=== PATIENT | male | born 1995 | race Hispanic/Latino ===

== ENCOUNTER → 2022-04-30 | Outpatient (CLI) | payer OTHER | LOC: M CARPUL 11:12 | PROVIDERS: ATTEND Physician Assistant | DX: R06.02 Shortness of breath (principal) ==

== ENCOUNTER → 2022-06-09 | Outpatient (CLI) | payer OTHER ==
[~2022-06-09] MED LIST: METHACHOLINE KIT (J7674) INH ONE
== END ==
LOC: M CARPUL 13:19
PROVIDERS: ATTEND Physician Assistant
DX: R06.02 Shortness of breath (principal)

== ENCOUNTER 2022-06-28 13:23 | Emergency (ER) | payer OTHER ==
[~2022-06-28] VITALS: Ht 172.7 cm; Wt 87.8 kg
[2022-06-28] MEDS ORDERED: ZOLO25TA PO (13:32)
[2022-06-28] MEDS ORDERED: HYDR50TA70 PO (13:32)
[2022-06-28 15:52] LABS: BASO % 0.4 % (0.0-1.0); EOS # 0.1 10^3/uL (0.0-0.5); EOS % 1.5 % (0.0-3.0); HEMATOCRIT 43.5 % (42.0-52.0); HEMOGLOBIN 14.8 g/dl (13.5-17.5); LYMPH # 1.8 10^3/uL (1.5-5.0); LYMPH % 33.7 % (24.0-44.0); MEAN CORPUSCULAR HEMOGLOBIN 30.8 pg (27.0-33.0); MEAN CORPUSCULAR VOLUME 90.6 fl (80.0-96.0); MONO # 0.4 10^3/uL (0.0-0.8); MONO % 7.3 % (2.0-8.0); NEUTROPHILS % 56.9 % (36.0-66.0); PLATELET COUNT, AUTOMATED 208 10^3/uL (150-450); WHITE BLOOD COUNT 5.3 10^3/uL (4.0-10.0)
[2022-06-28 16:30] LABS: ALBUMIN 3.9 GM/DL (3.2-5.2); ALT/SGPT 33 U/L (12-78); BILIRUBIN,TOTAL 0.3 MG/DL (0.2-1.0); BLOOD UREA NITROGEN 10 MG/DL (7-18); CALCIUM LEVEL 9.5 MG/DL (8.5-10.1); CARBON DIOXIDE LEVEL 28 MEQ/L (21-32); CHLORIDE LEVEL 112 MEQ/L (98-107); FREE T4 0.97 NG/DL (0.76-1.46); GLOMERULAR FILTRATION RATE > 60.0 (>60); GLUCOSE, FASTING 96 MG/DL (70-100); POTASSIUM SERUM 4.8 MEQ/L (3.5-5.1); SODIUM LEVEL 144 MEQ/L (136-145)
[2022-06-28 17:17] VITALS: BP 120/67
== END 2022-06-28 17:20 | disposition home or self-care (01) ==
LOC: M ED 13:23
DX: R42 Dizziness and giddiness (principal); G47.00 Insomnia, unspecified; F41.9 Anxiety disorder, unspecified; Z79.899 Other long term (current) drug therapy

== ENCOUNTER → 2022-07-09 | Outpatient (CLI) | payer OTHER ==
[~2022-07-09] MED LIST changes: +HYDR50TA70 PO; -METHACHOLINE KIT (J7674) INH ONE; +ZOLO25TA PO
== END ==
LOC: M PLAIMG 09:05
PROVIDERS: ATTEND Internal Medicine
DX: R06.00 Dyspnea, unspecified (principal)

== ENCOUNTER 2023-02-09 10:49 | Emergency (ER) | payer OTHER ==
[~2023-02-09] VITALS: Ht 175.3 cm; Wt 86.3 kg
[2023-02-09] MEDS ORDERED: ASPIRIN 81MG CHEW TABLET PO ONE (12:25)
[2023-02-09 13:32] LABS: BASO % 0.2 % (0.0-1.0); EOS # 0.1 10^3/uL (0.0-0.5); EOS % 1.5 % (0.0-3.0); HEMATOCRIT 41.9 % (42.0-52.0); HEMOGLOBIN 14.2 g/dl (13.5-17.5); LYMPH # 1.6 10^3/uL (1.5-5.0); LYMPH % 33.8 % (24.0-44.0); MEAN CORPUSCULAR HEMOGLOBIN 30.5 pg (27.0-33.0); MEAN CORPUSCULAR HGB CONC 33.9 g/dl (32.0-36.5); MEAN CORPUSCULAR VOLUME 90.1 fl (80.0-96.0); MONO # 0.5 10^3/uL (0.0-0.8); NEUTROPHILS # 2.5 10^3/uL (1.5-8.5); NEUTROPHILS % 53.3 % (36.0-66.0); PLATELET COUNT, AUTOMATED 201 10^3/uL (150-450); RED BLOOD COUNT 4.65 10^6/uL (4.30-6.10); WHITE BLOOD COUNT 4.6 10^3/uL (4.0-10.0)
[2023-02-09 13:42] LABS: INR 1.13; PROTHROMBIN TIME 14.7 SECONDS (12.5-14.5)
[2023-02-09 14:04] LABS: CK-MB VALUE MASS < 1.0 NG/ML (<3.6)
[2023-02-09 14:07] LABS: CPK CREATINE PHOSPHOKINASE 96 U/L (46-171); MB/CK RELATIVE INDEX 1.04 (< OR =4)
[2023-02-09 14:08] LABS: THYROID STIMULATING HORMONE 0.008 uIU/ML (0.55-4.78)
[2023-02-09 14:32] VITALS: BP 115/62
[2023-02-09 14:32] LABS: ALBUMIN 3.7 G/DL (3.2-5.2); ALKALINE PHOSPHATASE 71 U/L (46-116); ALT/SGPT 43 U/L (7.0-40); AST/SGOT 19 U/L (<34); BILIRUBIN,DIRECT 0.2 MG/DL (<0.4); BILIRUBIN,TOTAL 0.5 MG/DL (0.3-1.2); BLOOD UREA NITROGEN 20 MG/DL (9-23); CARBON DIOXIDE LEVEL 30 MMOL/L (20-31); CHLORIDE LEVEL 108 MMOL/L (98-107); CREATININE FOR GFR 0.85 MG/DL (0.70-1.30); GLOMERULAR FILTRATION RATE > 60.0 (>60); GLUCOSE, FASTING 85 MG/DL (60-100); POTASSIUM SERUM 4.4 MMOL/L (3.5-5.1); SODIUM LEVEL 139 MMOL/L (136-145); TOTAL PROTEIN 6.4 G/DL (5.7-8.2)
== END 2023-02-09 14:52 | disposition home or self-care (01) ==
LOC: M ED 10:49
DX: R00.2 Palpitations (principal)

== ENCOUNTER 2023-06-20 10:42 | Emergency (ER) | payer OTHER ==
[~2023-06-20] VITALS: Ht 175.3 cm; Wt 85.1 kg
[2023-06-20 11:59] LABS: APPEARANCE, URINE CLEAR (CLEAR); BACTERIA, URINE AUTO NEGATIVE (NEGATIVE); BILIRUBIN, URINE AUTO NEGATIVE (NEGATIVE); BLOOD, URINE BLOOD NEGATIVE (NEGATIVE); COLOR, URINE YELLOW (YELLOW); GLUCOSE, URINE (UA) AUTO NEGATIVE (NEGATIVE); KETONE, URINE AUTO NEGATIVE (NEGATIVE); LEUKOCYTE ESTERASE, URINE AUTO NEGATIVE (NEGATIVE); MUCUS, URINE SMALL (NEGATIVE); NITRITE, URINE AUTO NEGATIVE (NEGATIVE); PROTEIN, URINE AUTO NEGATIVE (NEGATIVE); RBC, URINE AUTO 0 /HPF (0-3); SPECIFIC GRAVITY URINE AUTO 1.017 (1.002-1.035); SQUAMOUS EPITHELIAL CELL UR AU 0 /HPF (0-6); WBC, URINE AUTO 1 /HPF (0-3)
[2023-06-20 13:24] LABS: GC DNA AMPLIFICATION NEGATIVE (NEGATIVE)
[2023-06-20 16:49] VITALS: BP 130/72; TEMP 98.5; O2SAT 98
== END 2023-06-20 16:52 | disposition home or self-care (01) ==
LOC: M ED 10:42
DX: R35.0 Frequency of micturition (principal); K40.90 Unilateral inguinal hernia, without obstruction or gangrene, not specified as recurrent

== ENCOUNTER 2024-01-17 11:37 | Emergency (ER) | payer OTHER ==
[~2024-01-17] VITALS: Ht 175.3 cm; Wt 89.9 kg
[~2024-01-17 11:37] MED LIST changes: +FAMO40TA3 PO; +ONDA4TAB6 PO; +ZOLO50TA PO
[2024-01-17 12:44] LABS: RSV AMPLIFICATION NEGATIVE (NEGATIVE)
[2024-01-17] MEDS ORDERED: IBUP-1022 PO (14:46)
[2024-01-17] MEDS ORDERED: BENZ200C70 PO (14:46)
[2024-01-17 14:53] VITALS: BP 117/64; TEMP 95.9; O2SAT 98
== END 2024-01-17 14:53 | disposition home or self-care (01) ==
LOC: M ED 11:37
DX: J06.9 Acute upper respiratory infection, unspecified (principal)

== ENCOUNTER 2024-04-06 13:13 | Emergency (ER) | payer OTHER ==
[~2024-04-06] VITALS: Ht 175.3 cm; Wt 89.1 kg
[~2024-04-06 13:13] MED LIST changes: +BENZ200C70 PO; +IBUP-1022 PO
[2024-04-06] MEDS ORDERED: OMEP-173 (13:30)
[2024-04-06 14:36] LABS: BASO % 0.2 % (0.0-1.0); EOS % 0.2 % (0.0-3.0); HEMATOCRIT 44.9 % (42.0-52.0); HEMOGLOBIN 15.6 g/dl (13.5-17.5); LYMPH # 1.2 10^3/uL (1.5-5.0); LYMPH % 12.7 % (24.0-44.0); MEAN CORPUSCULAR HEMOGLOBIN 30.6 pg (27.0-33.0); MEAN CORPUSCULAR HGB CONC 34.7 g/dl (32.0-36.5); MONO # 0.4 10^3/uL (0.0-0.8); MONO % 4.9 % (2.0-8.0); NEUTROPHILS # 7.4 10^3/uL (1.5-8.5); NEUTROPHILS % 81.8 % (36.0-66.0); PLATELET COUNT, AUTOMATED 226 10^3/uL (150-450)
[2024-04-06 15:00] LABS: BILIRUBIN,DIRECT 0.2 MG/DL (<0.4); BILIRUBIN,TOTAL 0.5 MG/DL (0.3-1.2); TOTAL PROTEIN 7.2 G/DL (5.7-8.2)
[2024-04-06] MEDS: PANTOPRAZOLE 40MG VIAL IV ONE (15:44)
[2024-04-06] MEDS: NS 1,000 ML IV ONE (15:44)
[2024-04-06] MEDS ORDERED: ONDA4TAB6 PO (16:56)
[2024-04-06 16:59] VITALS: BP 151/84; TEMP 97.7; O2SAT 99
[2024-04-06] MEDS: ONDANSETRON 4MG 2ML VIAL IV ONE (17:10)
== END 2024-04-06 17:05 | disposition home or self-care (01) ==
LOC: M ED 13:13 → EDBD 13:13 → M ED 17:05
DX: R11.2 Nausea with vomiting, unspecified (principal); F10.10 Alcohol abuse, uncomplicated; Z79.899 Other long term (current) drug therapy
CPT/HCPCS: 80047; 80076; 83690; 85025; 96374; 96375; 99284; C9113; J2405